=== PATIENT | female | born 1950 | race Caucasian/White ===

== ENCOUNTER → 2018-03-27 | Outpatient (CLI) | payer MEDICARE, BC ==
[2018-03-27 13:05] LABS: BASOPHILS ABSOLUTE AUTO 0.08 K/mm3 (0.00-0.23); BASOPHILS PERCENT AUTO 1 % (0-2); EOSINOPHILS ABSOLUTE AUTO 0.18 K/mm3 (0.00-0.68); EOSINOPHILS PERCENT AUTO 3 % (0-6); Hematocrit 38.9 % (33.0-51.0); Hemoglobin 13.3 g/dL (11.5-16.0); IMMATURE GRAN ABSOLUTE AUTO 0.02 K/mm3 (0.00-0.10); IMMATURE GRAN PERCENT AUTO 0 % (0-1); LYMPHOCYTES ABSOLUTE AUTO 0.74 K/mm3 (0.84-5.20); LYMPHOCYTES PERCENT AUTO 13 % (21-46); MONOCYTES ABSOLUTE AUTO 0.83 K/mm3 (0.16-1.47); MONOCYTES PERCENT AUTO 14 % (4-13); Mean Corpuscular HGB Conc 34.2 g/dL (31.5-36.5); Mean Corpuscular Volume 100 fL (80-100); Mean Platelet Volume 9.9 fL (9.1-12.4); NEUTROPHILS ABSOLUTE AUTO 3.98 K/mm3 (1.96-9.15); NEUTROPHILS PERCENT AUTO 68 % (41-73); Platelet Count 278 K/mm3 (150-400); RDW Coefficient Variation 12.9 % (11.7-14.2); Red Blood Cell Count 3.91 M/mm3 (3.80-5.20); White Blood Cell Count 5.83 K/mm3 (4.00-11.30)
[2018-03-27 13:17] LABS: Anion Gap 10 mmol/L (6-16); Blood Urea Nitrogen 13 mg/dL (8-24); Bun/Creatinine Ratio 18.3 (12.0-20.0); CO2, Blood 28 mmol/L (21-32); Calcium, Blood 9.6 mg/dL (8.5-10.1); Chloride, Blood 100 mmol/L (98-108); Creatinine, Blood 0.71 mg/dL (0.40-1.00); Glomerular Filtration Rate >60 (60-); Glucose, Blood 93 mg/dL (70-99); Potassium, Blood 4.8 mmol/L (3.5-5.5); Sodium, Blood 138 mmol/L (136-145)
[2018-03-27 13:35] LABS: Troponin I <0.017 ng/mL (0.000-0.040)
== END ==
LOC: LAB SHORT 13:00 → LAB EV 13:00
PROVIDERS: Physician Assistant Surgical
DX: R00.2 Palpitations (principal)
CPT/HCPCS: 80048; 84484; 85025

== ENCOUNTER 2019-05-28 09:13 | Day surgery (SDC) | payer MEDICARE, BC ==
[~2019-05-28] VITALS: Ht 167.6 cm; Wt 70.6 kg
[~2019-05-28 09:13] MED LIST: ASCO500 PO; ASPI325 PO; CALCIUM + D3 E1 EACH PO; CENTRUM SILVER1 EAC2 PO; CRANBERRY500 M1 PO; OMEG1CAP30 PO; TRAN2 PO
== END 2019-05-28 11:22 | disposition home or self-care (01) ==
LOC: ORSCSDS 09:13
PROVIDERS: Surgery
PROC: 0DBN8ZX Excision of Sigmoid Colon, Via Natural or Artificial Opening Endoscopic, Diagnostic (ICD-10-PCS; principal; 2019-05-28 10:30)
PROC: 0DBL8ZX Excision of Transverse Colon, Via Natural or Artificial Opening Endoscopic, Diagnostic (ICD-10-PCS; principal; 2019-05-28 10:30)
DX: Z12.11 Encounter for screening for malignant neoplasm of colon (principal); Z86.010 Personal history of colon polyps; D12.5 Benign neoplasm of sigmoid colon; D12.3 Benign neoplasm of transverse colon; K57.30 Diverticulosis of large intestine without perforation or abscess without bleeding; I10 Essential (primary) hypertension; E78.5 Hyperlipidemia, unspecified; Z79.82 Long term (current) use of aspirin; Z87.891 Personal history of nicotine dependence; Z79.899 Other long term (current) drug therapy
CPT/HCPCS: 88305; J2704; J7120

== ENCOUNTER 2019-10-01 08:16 | Day surgery (SDC) | payer MEDICARE, BC ==
[~2019-10-01] VITALS: Ht 160 cm; Wt 69.5 kg
[~2019-10-01 08:16] MED LIST changes: +ELIQUIS5 MG PO; +METO25ER PO
== END 2019-10-01 23:35 | disposition home or self-care (01) ==
LOC: MHTC 08:16
DX: I48.19 Other persistent atrial fibrillation (principal); I05.9 Rheumatic mitral valve disease, unspecified; I10 Essential (primary) hypertension; E78.5 Hyperlipidemia, unspecified; Z88.1 Allergy status to other antibiotic agents; Z88.2 Allergy status to sulfonamides; Z88.8 Allergy status to other drugs, medicaments and biological substances; Z79.01 Long term (current) use of anticoagulants; Z79.899 Other long term (current) drug therapy
CPT/HCPCS: 92960; 93005; 93010; 99152; 99153; J2250; J3010; J7030

== ENCOUNTER → 2020-08-17 | Outpatient (CLI) | payer MEDICARE, BC | END | disposition home or self-care (01) | LOC: LAB 14:47 → LAB SHORT 14:47 | DX: D48.5 Neoplasm of uncertain behavior of skin (principal); L73.8 Other specified follicular disorders | CPT/HCPCS: 88305 ==

== ENCOUNTER → 2021-02-07 | Outpatient (CLI) | payer MEDICARE, BC | LOC: LAB SHORT 16:13 → PLD 16:13 | DX: D48.5 Neoplasm of uncertain behavior of skin (principal); Z88.2 Allergy status to sulfonamides; Z88.8 Allergy status to other drugs, medicaments and biological substances | CPT/HCPCS: 88305 ==

== ENCOUNTER → 2021-09-11 | Outpatient (CLI) | payer MEDICARE, BC | LOC: LAB 10:57 → LAB SHORT 10:57 | DX: D48.5 Neoplasm of uncertain behavior of skin (principal); D23.39 Other benign neoplasm of skin of other parts of face; L57.8 Other skin changes due to chronic exposure to nonionizing radiation; L08.89 Other specified local infections of the skin and subcutaneous tissue; Z88.2 Allergy status to sulfonamides; Z88.8 Allergy status to other drugs, medicaments and biological substances | CPT/HCPCS: 88305 ==

== ENCOUNTER 2023-06-19 06:00 | Day surgery (SDC) | payer MEDICARE, BC ==
[~2023-06-19] VITALS: Ht 160 cm; Wt 73.0 kg
[~2023-06-19 06:00] MED LIST changes: +GABA300 PO
[2023-06-19 06:40] VITALS: BP 167/111
[2023-06-19 07:12] VITALS: BP 137/99
[2023-06-19 07:39] VITALS: BP 107/75
[2023-06-19 07:42] VITALS: BP 123/79
--- NOTE | 2023-06-19 08:10 | NUR ---
PT AND VERBALIZED UNDERSTANDING OF WRITTEN AND VERBAL D/C INST. IV REMOVED. PT TAKEN OUT OF THE HRT CENTER VIA W/C.
== END 2023-06-19 08:00 | disposition home or self-care (01) ==
LOC: MHTC 06:00
DX: I34.0 Nonrheumatic mitral (valve) insufficiency (principal); I34.1 Nonrheumatic mitral (valve) prolapse; I48.0 Paroxysmal atrial fibrillation; I10 Essential (primary) hypertension; R73.03 Prediabetes; R79.89 Other specified abnormal findings of blood chemistry; G25.81 Restless legs syndrome; E78.5 Hyperlipidemia, unspecified; G47.33 Obstructive sleep apnea (adult) (pediatric); G89.29 Other chronic pain; M54.9 Dorsalgia, unspecified; E66.3 Overweight; F10.10 Alcohol abuse, uncomplicated; Z88.2 Allergy status to sulfonamides; Z87.891 Personal history of nicotine dependence
CPT/HCPCS: 93312; 93325; A9270; J2001; J2704; J7030

== ENCOUNTER 2024-01-21 11:00 | Inpatient (IN) | payer MEDICARE, BC ==
[~2024-01-21] VITALS: Ht 157.5 cm; Wt 71.5 kg
[2024-01-21 13:09] LABS: BASOPHILS ABSOLUTE AUTO 0.05 K/mm3 (0.00-0.23); BASOPHILS PERCENT AUTO 0 % (0-2); EOSINOPHILS PERCENT AUTO 0 % (0-6); Hematocrit 37.7 % (33.0-51.0); Hemoglobin 12.8 g/dL (11.5-16.0); IMMATURE GRAN ABSOLUTE AUTO 0.06 K/mm3 (0.00-0.10); IMMATURE GRAN PERCENT AUTO 0 % (0-1); LYMPHOCYTES ABSOLUTE AUTO 0.64 K/mm3 (0.84-5.20); LYMPHOCYTES PERCENT AUTO 5 % (21-46); MONOCYTES ABSOLUTE AUTO 1.29 K/mm3 (0.16-1.47); MONOCYTES PERCENT AUTO 10 % (4-13); Mean Corpuscular Volume 91 fL (80-100); Mean Platelet Volume 9.4 fL (9.1-12.4); NEUTROPHILS ABSOLUTE AUTO 11.58 K/mm3 (1.96-9.15); NEUTROPHILS PERCENT AUTO 85 % (41-73); Platelet Count 422 K/mm3 (150-400); RDW Coefficient Variation 12.7 % (11.7-14.2); RDW Standard Deviation 42.4 fL (35.1-46.3); Red Blood Cell Count 4.13 M/mm3 (3.80-5.20); White Blood Cell Count 13.62 K/mm3 (4.00-11.30)
[2024-01-21] MEDS ORDERED: Doxycycline Hyclate 100 MG TAB PO ONE (14:50)
[2024-01-21] MEDS ORDERED: NS 1,000 ML IV SCH (14:50)
[2024-01-21] MEDS ORDERED: CefTRIAXone Sodium 1,000 MG in NS 50 ML IV ONE ×2 (14:50→16:15)
[2024-01-21 14:59] LABS: Albumin, Blood 2.9 g/dL (3.4-5.0); Albumin/Globulin Ratio 0.7 (0.8-1.8); Bilirubin, Total 1.5 mg/dL (0.1-1.0); Bun/Creatinine Ratio 19.4 (12.0-20.0); Calcium, Blood 9.4 mg/dL (8.5-10.1); Creatinine, Blood 0.62 mg/dL (0.40-1.00); Globulin, Blood 4.4 g/dL (2.2-4.0); Total Protein, Blood 7.3 g/dL (6.4-8.2)
[2024-01-21] MEDS ORDERED: dilTIAZem HCL 125 MG in Dextrose 5% 100 ML IV SCH (15:35)
[2024-01-21] MEDS ORDERED: Acetaminophen 325 MG TABLET PO PRN (16:05)
[2024-01-21] MEDS ORDERED: FLU VACC QS2023-24(6MOS UP)/PF 60 MCG/0.5 ML SYRINGE IM SCH (16:05)
[2024-01-21] MEDS ORDERED: Prochlorperazine Edisylate 10 mg Vial IV PRN (16:10)
[2024-01-21] MEDS ORDERED: Azithromycin 500 MG in NS 250 ML IV ONE (16:15)
[2024-01-21] MEDS ORDERED: LORazepam 2 MG/ML 1ML Injection IV PRN (16:25)
[2024-01-21] MEDS ORDERED: FURO20 PO (18:36)
--- NOTE | 2024-01-21 19:31 | NUR ---
PT ARRIVED TO [facility] FROM ER VIA [facility]. PT ABLE TO STAND AND AMBULATE FROM [facility] TO BED WITH HER CANE AND SBA FROM STAFF. PT A&OX4, ORIENTED TO ROOM, CALL LIGHT AND UNIT ROUTINES. HR 150s W EXERTION, AFIB ON TELE. CARDIZEM GTT FROM ER INCREASED TO 15. INITAL BPs DID NOT APPEAR TO BE READING ACCURATELY, WRIST CUFF PLACED AND BPs WERE IMPROVED. REPORT GIVEN TO AYSHA BILLINGS.
[2024-01-21 19:51] VITALS: BP 128/76
[2024-01-21] MEDS ORDERED: Apixaban 5 MG Tab PO SCH (21:00)
[2024-01-21] MEDS ORDERED: Gabapentin 300 MG Cap PO SCH (21:00)
[2024-01-21 23:45] VITALS: BP 110/60
[2024-01-22] VITALS (8 sets, daily range): BP systolic 109–150; BP diastolic 55–92
[2024-01-22 05:06] LABS: BASOPHILS ABSOLUTE AUTO 0.04 K/mm3 (0.00-0.23); BASOPHILS PERCENT AUTO 0 % (0-2); EOSINOPHILS ABSOLUTE AUTO 0.01 K/mm3 (0.00-0.68); EOSINOPHILS PERCENT AUTO 0 % (0-6); Hematocrit 37.8 % (33.0-51.0); Hemoglobin 12.8 g/dL (11.5-16.0); IMMATURE GRAN ABSOLUTE AUTO 0.09 K/mm3 (0.00-0.10); IMMATURE GRAN PERCENT AUTO 1 % (0-1); LYMPHOCYTES ABSOLUTE AUTO 0.67 K/mm3 (0.84-5.20); LYMPHOCYTES PERCENT AUTO 4 % (21-46); MONOCYTES ABSOLUTE AUTO 1.58 K/mm3 (0.16-1.47); MONOCYTES PERCENT AUTO 10 % (4-13); Mean Corpuscular HGB 30.7 pg (26.0-34.0); Mean Corpuscular HGB Conc 33.9 g/dL (31.5-36.5); Mean Corpuscular Volume 91 fL (80-100); Mean Platelet Volume 9.3 fL (9.1-12.4); NEUTROPHILS ABSOLUTE AUTO 14.11 K/mm3 (1.96-9.15); NEUTROPHILS PERCENT AUTO 86 % (41-73); Platelet Count 370 K/mm3 (150-400); RDW Coefficient Variation 12.9 % (11.7-14.2); RDW Standard Deviation 42.6 fL (35.1-46.3); Red Blood Cell Count 4.17 M/mm3 (3.80-5.20)
--- NOTE | 2024-01-22 05:24 | NUR ---
SHIFT SUMMARY A/Ox4 AND COOPERATIVE WITH CARE. ANSWERS QUESTIONS APPROPRIATELY AND ABLE TO MAKE HER NEEDS KNOWN. SOME FORGETFULNESS NOTED, BUT EASILY REDIRECTABLE. NO ACUTE EVENTS OVERNIGHT. CARDIAC, REMAINS IN AFIB RHYTHM 90-110'S THROUGHOUT MOST OF THE NIGHT. CARDIZEM gtt TITRATED OFF AND ON THROUGHOUT THE NIGHT FOR HEART RATE CONTROL. SHIFT. HR WOULD INCREASE INTO THE 130's-140'S WITH AMBULATION, BUT WOULD RETURN TO 90-110 S AT REST. SBP HAS REMAINED STABLE RANGING 110-150'S. RESPIRATORY, MAINTAINS SPO2 >90% ON RA WITH NO REPORTS OF SOB OR DYSPNEA WHEN AT REST. GI/, ABLE TO AMBULATE TO BATHROOM WITH MINIMAL ASSISTANCE FROM STAFF. ECHO SCHEDULED THIS AM. NO NEW ORDERS AT THIS TIME, WILL REPORT TO ONCOMING RN. MARILU HERNANDEZ OF THIS NOTE.
[2024-01-22 06:26] LABS: Bun/Creatinine Ratio 19.4 (12.0-20.0); Calcium, Blood 9.4 mg/dL (8.5-10.1); Creatinine, Blood 0.57 mg/dL (0.40-1.00); Magnesium, Blood 1.7 mg/dL (1.6-2.4); Potassium, Blood 3.6 mmol/L (3.5-5.5)
--- NOTE | 2024-01-22 08:21 | NUR ---
Very pleasantly conversant cheerful patient this morning. arrived shortly after my initial assessment. She states that she is coughing occasionally, but no sputum production. The cough started 2 weeks ago. Lung sounds are clear to auscultation, but she is tachypneic at rest, 24/min. Heart rhythm noted atrial fibrillation rate 102-106 bpm, on cardizem gtt at 15 cc/hour. Noc shift reported that the cardizem gtt was off for about 5 hours last night when rate was well controllled; but after she got up to void it had to be turned back on, around 5 am. Pt states that she normally takes 12.5 mg metoprolol, but that it had been increased to 50 mg for better rate control as out patient. States that this made her feel extremely tired and weak. Last dose of metoprolol that she took she said was yesterday morning, 25 mg. Echocardiogram currently in progress.
[2024-01-22] MEDS ORDERED: Metoprolol Succinate 25 MG TABCR PO SCH ×3 (09:00→11:00)
[2024-01-22] MEDS ORDERED: Metoprolol Tartrate 25 MG Tab PO SCH ×2 (11:10→21:00)
[2024-01-22] MEDS ORDERED: Potassium Chloride 20 MEQ TabCR PO SCH (12:00)
--- NOTE | 2024-01-22 13:11 | NUR ---
Spiritual care visit conducted. Patient is lying in bed and alert. She tells me about her L[employer] Day beliefs, her life growing up in [place], her marriage of 6 yrs and her medical problems. She tells me of her need for God at this time and is tearful as she speaks about it. I provide therapeutic listening, theological insights and prayer. Patient responded well and showed signs of an increase in her spiritual connection with God. I will cotninue to remain available.
--- NOTE | 2024-01-22 13:53 | NUR ---
Pt c/o feeling feverish; Temperature 101.5, then 102.0. Message sent to Dr. Hedrick, attending .
--- NOTE | 2024-01-22 14:00 | NUR ---
Ambulatory to the bathroom; heart rate 105 bpm on cardizem gtt at 10cc/hour. No dyspnea noted with activity, but she is tachypneic at rest.
[2024-01-22] MEDS ORDERED: NS 250 ML IV PRN (16:15)
[2024-01-22] MEDS ORDERED: CefTRIAXone Sodium 2,000 MG in NS 100 ML IV SCH (18:00)
[2024-01-22] MEDS ORDERED: Azithromycin 250 MG in NS 250 ML IV SCH (18:00)
[2024-01-22] MEDS ORDERED: Lactobacil 2-S.Thermo-Bifido 1 1 Cap PO SCH (21:00)
[2024-01-22] MEDS ORDERED: Gabapentin 300 MG Cap PO SCH (21:00)
[2024-01-23] VITALS (7 sets, daily range): BP systolic 109–149; BP diastolic 62–90
[2024-01-23 04:20] LABS: BASOPHILS ABSOLUTE AUTO 0.07 K/mm3 (0.00-0.23); BASOPHILS PERCENT AUTO 0 % (0-2); EOSINOPHILS ABSOLUTE AUTO 0.11 K/mm3 (0.00-0.68); EOSINOPHILS PERCENT AUTO 1 % (0-6); Hematocrit 34.4 % (33.0-51.0); Hemoglobin 11.5 g/dL (11.5-16.0); IMMATURE GRAN ABSOLUTE AUTO 0.08 K/mm3 (0.00-0.10); IMMATURE GRAN PERCENT AUTO 0 % (0-1); LYMPHOCYTES ABSOLUTE AUTO 0.88 K/mm3 (0.84-5.20); LYMPHOCYTES PERCENT AUTO 5 % (21-46); MONOCYTES ABSOLUTE AUTO 2.16 K/mm3 (0.16-1.47); MONOCYTES PERCENT AUTO 12 % (4-13); Mean Corpuscular HGB 30.5 pg (26.0-34.0); Mean Corpuscular HGB Conc 33.4 g/dL (31.5-36.5); Mean Corpuscular Volume 91 fL (80-100); Mean Platelet Volume 9.4 fL (9.1-12.4); NEUTROPHILS ABSOLUTE AUTO 14.95 K/mm3 (1.96-9.15); NEUTROPHILS PERCENT AUTO 82 % (41-73); Platelet Count 357 K/mm3 (150-400); RDW Coefficient Variation 13.2 % (11.7-14.2); RDW Standard Deviation 43.2 fL (35.1-46.3); Red Blood Cell Count 3.77 M/mm3 (3.80-5.20); White Blood Cell Count 18.25 K/mm3 (4.00-11.30)
[2024-01-23 04:48] LABS: Bun/Creatinine Ratio 21.1 (12.0-20.0); Calcium, Blood 9.7 mg/dL (8.5-10.1); Creatinine, Blood 0.62 mg/dL (0.40-1.00); Potassium, Blood 4.1 mmol/L (3.5-5.5)
--- NOTE | 2024-01-23 06:09 | NUR ---
SHIFT SUMMARY PT ALERT AND ORIENTED X 4, COOPERATIVE WITH CARE AND ABLE TO MAKE NEEDS KNOWN, CALLS APPROPRIATELY. LEXIE. SHE IS ON RA AND MAINTAINING 02 SATURATION ABOVE 92%, SHE HAS DENIED SOB ALL SHIFT. HR AFIB 80'S-LOW 100'S, BP STABLE, SHE HAS DENIED CHEST PAIN/PRESSURE/PALPITATIONS/DIZZINESS ALL SHIFT. CARDIZEM DRIP RUNNING AT 5MG/HR AND HAS BEEN ALL SHIFT. PT AMBULATES TO RESTROOM WITH SBA AND TOLERATES WELL. EDEMA TO BLE, PT SAID IT IS CHRONIC. AROUND 2100 PT'S TEMP WAS ELEVATED, PT WAS MEDICATED PER EMAR AND NO LONGER HAS ELEVATED TEMP, SEE VITALS. PT HAS BEEN SLEEPING THE MAJORITY OF THE SHIFT WITH UNLABORED BREATHING PATTERN AND RR 16. PT CURRENTLY RESTING IN BED WITH CALL LIGHT WITHIN REACH.
--- NOTE | 2024-01-23 08:05 | NUR ---
AM ASSESSMENT: Pt sitting up in chair finishing breakfast. Denies pain. Tele shows HR 120, afib at this time. Cardizem gtt running at 5mg/hr. Will medicate with oral metoprolol per orders and monitor. VSS. LS diminished in R upper lobe. BT positive. Pulses palp. Edema to BLE noted. Pulses palp. Call light in reach. Will continue to monitor.
--- NOTE | 2024-01-23 10:37 | NUR ---
update: HR in the 80's. Cardizem gtt turned off.
--- NOTE | 2024-01-23 14:28 | NUR ---
Spiritaul care teet conducted. Patient talks about her joey journey, and her greatest concern for her spouse. He is doing well but wants her home. She shares her excitement about her marked improvement. She welcomes prayer which I gladly supply. Patient showed signs of an elevated mood. I will continue to remain available to patient and family.
[2024-01-23] MEDS ORDERED: Metoprolol Tartrate 25 MG Tab PO ONE (15:55)
--- NOTE | 2024-01-23 17:37 | NUR ---
Shift Summary: Pt sitting up in chair eating dinner, at bedside. Pt has done well this shift. States that she is feeling better. Cardizem gtt was turned off this am and pt HR was doing well, rate in the 80's, until around [id number]. At that time HR started to trend up into the 120-130 range. Physician was notified and orders for oral metoprolol were given. HR now starting to trend back down and is in the low 100 range. PT other VS have remained stable. She has been up and independent in room throughout the day. HR does increase slightly with activity. No other changes this shift. Will report to night RN. Stable at this time.
--- NOTE | 2024-01-23 20:18 | NUR ---
[place] of care Pt alert, oriented x4; calm and cooperative with care. Pt up in chair, walks ind to bathroom and then gets in bed for the evening. Pt is able to make needs known. Pt denies pain, chest pain/pressure, sob, nausea, dizziness and numb/tingling. Tele afib 100-110's at rest, 120-130 with ambulation, bp stable; edema noted to ble. Spo2 >90% on ra, breathing even and unlabored; dim to rul. Abd soft, nontender, +bt t/o. No other acute changes noted. Will continue to monitor.
[2024-01-23] MEDS ORDERED: Metoprolol Tartrate 50 MG Tab PO SCH (21:00)
[2024-01-24 03:56] VITALS: BP 135/85
[2024-01-24 04:12] LABS: BASOPHILS ABSOLUTE AUTO 0.06 K/mm3 (0.00-0.23); BASOPHILS PERCENT AUTO 1 % (0-2); EOSINOPHILS ABSOLUTE AUTO 0.17 K/mm3 (0.00-0.68); EOSINOPHILS PERCENT AUTO 2 % (0-6); Hematocrit 32.9 % (33.0-51.0); Hemoglobin 11.2 g/dL (11.5-16.0); IMMATURE GRAN ABSOLUTE AUTO 0.05 K/mm3 (0.00-0.10); IMMATURE GRAN PERCENT AUTO 1 % (0-1); LYMPHOCYTES ABSOLUTE AUTO 0.85 K/mm3 (0.84-5.20); LYMPHOCYTES PERCENT AUTO 8 % (21-46); MONOCYTES ABSOLUTE AUTO 1.54 K/mm3 (0.16-1.47); MONOCYTES PERCENT AUTO 14 % (4-13); Mean Corpuscular HGB 30.7 pg (26.0-34.0); Mean Corpuscular Volume 90 fL (80-100); Mean Platelet Volume 9.7 fL (9.1-12.4); NEUTROPHILS ABSOLUTE AUTO 8.17 K/mm3 (1.96-9.15); NEUTROPHILS PERCENT AUTO 75 % (41-73); Platelet Count 370 K/mm3 (150-400); RDW Coefficient Variation 13.1 % (11.7-14.2); RDW Standard Deviation 43.4 fL (35.1-46.3); Red Blood Cell Count 3.65 M/mm3 (3.80-5.20); White Blood Cell Count 10.84 K/mm3 (4.00-11.30)
--- NOTE | 2024-01-24 04:34 | NUR ---
Shift Summary tele afib trended down to 90 for majority of shift, then started trending up to 110-110's at rest, 120-130 with ambulation. Other vss. No other acute changes noted. Will continue to monitor.
[2024-01-24 04:35] LABS: Bun/Creatinine Ratio 20.2 (12.0-20.0); Calcium, Blood 9.2 mg/dL (8.5-10.1); Creatinine, Blood 0.6 mg/dL (0.40-1.00); Potassium, Blood 3.9 mmol/L (3.5-5.5)
[2024-01-24 07:30] VITALS: BP 141/81
[2024-01-24] MEDS ORDERED: Furosemide 20 MG Tab PO SCH (09:25)
[2024-01-24 11:06] VITALS: BP 145/90
[2024-01-24] MEDS ORDERED: Benzonatate 100 MG Cap PO SCH (14:00)
[2024-01-24 16:33] VITALS: BP 141/84
--- NOTE | 2024-01-24 17:33 | NUR ---
SHIFT SUMMARY PT IS A&oX4, CALLS APPROPRAITELY, IND IN THE ROOM, AND CAN MAKE HER NEEDS KNOWN. THE PT'S HR HAS BEEN TACHY W/ ACTIVITY. ON TELE SHE IS AFIB. SP02 >95% ON RA. WE SWITCHED HER METOPROLOL THIS EVENING TO EXTENDED RELEASE. ALSO, THE PT WAS C/O EDEMA IN THE BLE; DR. MARTINEZ RESTARTED HER HOME LASIX. THE PT WORKED WITH PT/OT TODAY AND WAS UP IN THE CHAIR MOST OF THE EVENING. NO ACUTE EVENTS THIS SHIFT. SEE NOTES FOR ANY UPDATES.
[2024-01-24 20:06] VITALS: BP 138/111
[2024-01-24] MEDS ORDERED: Metoprolol Succinate 50 MG TABCR PO SCH (21:00)
[2024-01-25 00:30] VITALS: BP 149/91
[2024-01-25 04:54] VITALS: BP 129/74
--- NOTE | 2024-01-25 04:59 | NUR ---
SHIFT SUMMARY. PT HAS BEEN DOING WELL THIS SHIFT WITH NO ACUTE CHANGES. AOX4, PLEASANT, COOPERATIVE WITH CARE, CALLS APPROPRIATELY, ABLE TO MAKE NEEDS KNOWN. NO PAIN REPORTED THIS SHIFT. TELE ON THROUGHOUT SHIFT, PRIMARILY RUNNING IN THE 100s-110s WITH TACHYING UP WITH ANY ACTIVITY. VITALS INCLUDING BP STABLE. HAS MAINTAINED ADEQUATE SATURATIONS ON ROOM AIR THROUGHOUT SHIFT. REMAINS INDEPENDENT TRANSFER WITHIN ROOM AND CALLS APPROPRIATELY FOR ASSISTANCE WHEN NEEDED. HAS BEEN ABLE TO SLEEP THROUGH MOST OF SHIFT. BED LOCKED IN LOWEST POSITION. CALL LIGHT LEFT WITHIN REACH.
[2024-01-25 07:50] VITALS: BP 126/92
[2024-01-25] MEDS ORDERED: Amiodarone HCl 200 MG Tab PO SCH (10:00)
[2024-01-25] MEDS ORDERED: Bumetanide 1 MG Tab PO SCH (12:00)
[2024-01-25] MEDS ORDERED: Piperacillin/Tazobactam Sod 4.5 GM in NS 100 ML IV SCH (13:30)
[2024-01-25 15:31] VITALS: BP 130/80
--- NOTE | 2024-01-25 17:31 | NUR ---
SHIFT SUMMARY PT IS A&oX4, CALLS APPROPRAITLY, IND IN THE ROOM, AND IS ABLE TO MAKE HER NEEDS KNOWN. TODAY WE CHANGED HER CARDIAC MEDICATIONS TO 400MG AMIO BID, AND METOPROLOL 50MG XL DAILY. DR. MARTINEZ WANTS TO SEE HOW HER HEART RATE IS DOING IN THE MORNING BEFORE GIVING THE METOPROLOL BECAUSE SHE MIGHT WANT TO MAKE MORE MEDICATION CHANGES. BP STABLE. THE PT HAD A REPEAT CHEST XRAY AND IT SHOWED A WORSENING CHEST XRAY FOR PNA. SHE WAS STARTED ON ZOSYN TODAY. TH EPT WAS HAVING SOME RIGHT SHOULDER PAIN TODAY. SHE STATED SHE HAS BEEN HAVING IT FOR MONTHS AND IT IS WORSENED WITH MOVEMENT. SHE WAS MEDICATED ONCE WITH TYLENOL AND ENCOURAGED ROM. WHEN PAIN WAS REEVALUATED HER PAIN WENT DOWN AND THE PT HAD INCREASED ROM IN HER RIGHT ARM. THE PT'S SP02 >93% ON RA W/O ANY C.O SOB. ON TELE SHE HAS BEEN AFIB 90'S-160'S W/O ANY C/O ANGINA OR CHEST PRESSURE. THE PT HAD A CHEST CT W/ CONTRAST DONE THIS AFTERNOON. DR. MARTINEZ WILL BE BACK IN THE MORNING TO TALK TO THE PT ABOUT IT. THE PT WAS IN THE BATHROOM WHEN SHE CAME BACK TO DISCUSS IT.
[2024-01-25 20:05] VITALS: BP 135/71
[2024-01-26 00:41] VITALS: BP 136/85
[2024-01-26 03:44] LABS: BASOPHILS ABSOLUTE AUTO 0.07 K/mm3 (0.00-0.23); BASOPHILS PERCENT AUTO 1 % (0-2); EOSINOPHILS ABSOLUTE AUTO 0.26 K/mm3 (0.00-0.68); EOSINOPHILS PERCENT AUTO 3 % (0-6); Hematocrit 30.4 % (33.0-51.0); Hemoglobin 10.3 g/dL (11.5-16.0); IMMATURE GRAN ABSOLUTE AUTO 0.04 K/mm3 (0.00-0.10); IMMATURE GRAN PERCENT AUTO 1 % (0-1); LYMPHOCYTES ABSOLUTE AUTO 0.54 K/mm3 (0.84-5.20); LYMPHOCYTES PERCENT AUTO 7 % (21-46); MONOCYTES ABSOLUTE AUTO 1.11 K/mm3 (0.16-1.47); MONOCYTES PERCENT AUTO 14 % (4-13); Mean Corpuscular HGB 30.6 pg (26.0-34.0); Mean Corpuscular HGB Conc 33.9 g/dL (31.5-36.5); Mean Corpuscular Volume 90 fL (80-100); Mean Platelet Volume 9.6 fL (9.1-12.4); NEUTROPHILS PERCENT AUTO 75 % (41-73); Platelet Count 375 K/mm3 (150-400); RDW Coefficient Variation 13.1 % (11.7-14.2); RDW Standard Deviation 43.2 fL (35.1-46.3); Red Blood Cell Count 3.37 M/mm3 (3.80-5.20); White Blood Cell Count 7.92 K/mm3 (4.00-11.30)
[2024-01-26 04:09] LABS: Albumin, Blood 2.3 g/dL (3.4-5.0); Albumin/Globulin Ratio 0.6 (0.8-1.8); Bilirubin, Total 0.7 mg/dL (0.1-1.0); Bun/Creatinine Ratio 28.4 (12.0-20.0); Calcium, Blood 8.9 mg/dL (8.5-10.1); Creatinine, Blood 0.63 mg/dL (0.40-1.00); Globulin, Blood 3.7 g/dL (2.2-4.0); Magnesium, Blood 1.7 mg/dL (1.6-2.4); Potassium, Blood 3.6 mmol/L (3.5-5.5)
[2024-01-26 04:22] VITALS: BP 134/74
--- NOTE | 2024-01-26 04:27 | NUR ---
SHIFT SUMMARY. PT HAS BEEN DOING WELL OVER COURSE OF SHIFT. AOX4, PLEASANT, COOPERATIVE WITH CARE, CALLS APPROPRIATELY, ABLE TO MAKE NEEDS KNOWN. NO ACUTE CHANGES THIS SHIFT. TELE ON THROUGHOUT SHIFT. HAS MAINTAINED AFIB WITH LOWER CONSISTENT RATE THAN PREVIOUS SHIFT WITH THIS RN. HR MOSTLY SETTLING IN 90s-100s WITH OCCASIONAL TACHY EPISODES WITH AMBULATION, ALTHOUGH INSTANCES OF TACHY ARE LESS PRONOUNCED THAN PREVIOUS SHIFT WITH THIS RN. PT HAS BEEN ABLE TO SLEEP THROUGHOUT MOST OF THIS SHIFT THUS FAR. CONTINUES TO SATURATE WELL ON ROOM AIR. REMAINS INDEPENDENT WITHIN ROOM. ABX ADMINISTERED ON SCHEDULE WITHOUT DIFFICULTY. BED LOCKED IN LOWEST POSITION. CALL LIGHT LEFT WITHIN REACH. CONTINUING TO MONITOR.
[2024-01-26 07:48] VITALS: BP 136/74
[2024-01-26] MEDS ORDERED: Mag Sulfate 1 GM/D5% 100ML 100 ML IV STA (08:15)
[2024-01-26] MEDS ORDERED: Metoprolol Succinate 50 MG TABCR PO SCH (09:00)
[2024-01-26] MEDS ORDERED: Potassium Chloride 20 MEQ TabCR PO ONE (09:00)
[2024-01-26] MEDS ORDERED: Metoprolol Succinate 25 MG TABCR PO SCH (09:00)
[2024-01-26 11:05] VITALS: BP 135/98
[2024-01-26 15:42] VITALS: BP 138/90
--- NOTE | 2024-01-26 16:59 | NUR ---
SHIFT SUMMARY PT IS A&OX4, CALLS APPROPRIATELY, AND IS IND IN THE ROOM. SHE HAS HAD NO ACUTE EVENTS TODAY. ON TELE SHE HAS BEEN AFIB 90 S-140 S. HER HR TACH S UP W/ ACTIVITY. HER METOPROLOL XL WAS DECREASED TO 25MG THIS MORNING. THE PT HAS DENIED ANY ANGINA OR CHEST PRESSURE. SHE HAS BEEN ON RA W/ SP02 >93%. THE PT HAS BEEN TRYING TO KEEP HER ROM, AND HAS BEEN AMBULATING AROUND THE UNIT TODAY. HER HAS BEEN AT THE BEDSIDE AND HAS BEEN UPDATED ON HER CARE. SEE NOTES FOR ANY UPDATES. FIRE IGNITION RISK HAS BEEN ASSESSED.
[2024-01-26 20:00] VITALS: BP 144/83
--- NOTE | 2024-01-26 22:41 | NUR ---
ASSUMPTION OF CARE THIS RN ASSUMED CARE OF PT AT 1900, REPORT FROM MANUELITO REYES. PT A&O X4, PLEASANT AND COOPERATIVE WITH CARE. PT SITTING UP IN BEDSIDE RECLINER, ANSWERING QUESTIONS APPROPRIATELY. VS; SBP 144, HR 122, 98.5, SPO2 96% ON RA. PT DENIES CP/PRESSURE, DIZZINESS, SOB, PALPITATIONS, N/V. PT DENIES GENERAL PAIN AT THIS TIME, REPORTS HER RIGHT SHOULDER DOES "BOTHER HER AT TIMES". PT DENIES CONCERNS GI/. SKIN INTACT. PT INDEPENDENT IN ROOM, USES RESTROOM AND REPOSITIONS INDEPENDENTLY. PT DENIES NEEDS OR CONCERNS. CALL LIGHT IN REACH
[2024-01-27] VITALS: BP 141/82
[2024-01-27 04:00] VITALS: BP 140/79
[2024-01-27 05:02] LABS: BASOPHILS ABSOLUTE AUTO 0.09 K/mm3 (0.00-0.23); BASOPHILS PERCENT AUTO 1 % (0-2); EOSINOPHILS ABSOLUTE AUTO 0.29 K/mm3 (0.00-0.68); EOSINOPHILS PERCENT AUTO 3 % (0-6); Hematocrit 31.7 % (33.0-51.0); Hemoglobin 10.7 g/dL (11.5-16.0); IMMATURE GRAN ABSOLUTE AUTO 0.07 K/mm3 (0.00-0.10); IMMATURE GRAN PERCENT AUTO 1 % (0-1); LYMPHOCYTES ABSOLUTE AUTO 0.68 K/mm3 (0.84-5.20); LYMPHOCYTES PERCENT AUTO 6 % (21-46); MONOCYTES PERCENT AUTO 15 % (4-13); Mean Corpuscular HGB 30.6 pg (26.0-34.0); Mean Corpuscular HGB Conc 33.8 g/dL (31.5-36.5); Mean Corpuscular Volume 91 fL (80-100); Mean Platelet Volume 9.4 fL (9.1-12.4); NEUTROPHILS ABSOLUTE AUTO 8.17 K/mm3 (1.96-9.15); NEUTROPHILS PERCENT AUTO 75 % (41-73); Platelet Count 415 K/mm3 (150-400); RDW Coefficient Variation 12.9 % (11.7-14.2); RDW Standard Deviation 42.4 fL (35.1-46.3)
[2024-01-27 05:35] LABS: Bun/Creatinine Ratio 26.1 (12.0-20.0); Calcium, Blood 9.2 mg/dL (8.5-10.1); Creatinine, Blood 0.69 mg/dL (0.40-1.00); Potassium, Blood 3.8 mmol/L (3.5-5.5)
--- NOTE | 2024-01-27 07:30 | NUR ---
SHIFT SUMMARY PT REMAINS A&O X4, VSS T/O SHIFT; SBP 140'S, REMAINS IN AFIB WITH RATE IN 90'S - 110'S. PT'S HR CONTINUES TO INCREASE INTO 120 - 150'S WITH ACTIVITY. PT DENIES SX AND IS ABLE TO RECOVER ONCE AT REST. REMAINS ON RA, SPO2 >95%, WOB AND RR WNL. PT REPORTS COUGH IMPROVING. AFEBRILE. NO ACUTE CHANGES DURING SHIFT. PT INDEPENDENT IN ROOM, VOIDING WELL. PT REPORTS ONE SMALL, FORMED BUT SOFT BM - NO CONCERNS OR CHANGES. ABX PER EMAR. PT ABLE TO VERBALIZE NEEDS. WILL UPDATE ONCOMING RN
[2024-01-27] MEDS ORDERED: Lisinopril 10 MG Tab PO SCH (08:00)
[2024-01-27 08:01] VITALS: BP 132/80
[2024-01-27] MEDS ORDERED: Metoprolol Succinate 25 MG TABCR PO SCH (11:00)
[2024-01-27] MEDS ORDERED: Potassium Chloride 20 MEQ TabCR PO ONE (12:00)
[2024-01-27 12:56] VITALS: BP 120/77
[2024-01-27 16:55] VITALS: BP 133/78
--- NOTE | 2024-01-27 17:48 | NUR ---
PT IS A/OX4,PLEASANT AND COOPERATIVE. THE PT IS UP IND IN HER ROOM AND TO THE BATHROOM. THE PTS HEART HAS BEEN IN THE 110'S - 120'S FOR MOST OF THE DAY AT REST. THE PTS HR INCREASES UP TO THE 130-140 RANGE WITH MINIMAL ACTIVITY. THE PT DENIED ANY CHEST PAIN,N/V OR SOB. PTS WAS AT THE BEDSIDE T/O THE DAY. CALL LIGHT IN REACH. POSS DC TOMORROW
[2024-01-27 20:00] VITALS: BP 125/82
[2024-01-28] VITALS: BP 129/62
[2024-01-28 04:00] VITALS: BP 110/67
[2024-01-28 04:40] LABS: BASOPHILS ABSOLUTE AUTO 0.08 K/mm3 (0.00-0.23); BASOPHILS PERCENT AUTO 1 % (0-2); EOSINOPHILS ABSOLUTE AUTO 0.33 K/mm3 (0.00-0.68); EOSINOPHILS PERCENT AUTO 3 % (0-6); Hematocrit 31.1 % (33.0-51.0); Hemoglobin 10.3 g/dL (11.5-16.0); IMMATURE GRAN ABSOLUTE AUTO 0.06 K/mm3 (0.00-0.10); IMMATURE GRAN PERCENT AUTO 1 % (0-1); LYMPHOCYTES ABSOLUTE AUTO 0.63 K/mm3 (0.84-5.20); LYMPHOCYTES PERCENT AUTO 6 % (21-46); MONOCYTES ABSOLUTE AUTO 1.49 K/mm3 (0.16-1.47); MONOCYTES PERCENT AUTO 14 % (4-13); Mean Corpuscular HGB 29.9 pg (26.0-34.0); Mean Corpuscular HGB Conc 33.1 g/dL (31.5-36.5); Mean Corpuscular Volume 90 fL (80-100); Mean Platelet Volume 9.4 fL (9.1-12.4); NEUTROPHILS ABSOLUTE AUTO 8.01 K/mm3 (1.96-9.15); NEUTROPHILS PERCENT AUTO 76 % (41-73); Platelet Count 421 K/mm3 (150-400); RDW Coefficient Variation 13.1 % (11.7-14.2); RDW Standard Deviation 43.2 fL (35.1-46.3); Red Blood Cell Count 3.44 M/mm3 (3.80-5.20)
[2024-01-28 05:05] LABS: Bun/Creatinine Ratio 21.1 (12.0-20.0); Calcium, Blood 9.1 mg/dL (8.5-10.1); Creatinine, Blood 0.76 mg/dL (0.40-1.00)
--- NOTE | 2024-01-28 06:25 | NUR ---
SHIFT SUMMARY PT REMAINS A&O X4. VS; SBP 120'S, AFIB WITH RATE IN 90 - 120'S AT REST, HR CONTINUES TO INCREASE TO 130 -140'S WITH ACTIVITY. PT REMAINS ASYMPTOMATIC. AFEBRILE, RA SPO2 >94%. NO ACUTE EVENTS OVERNIGHT. PT INDEPENDENT IN ROOM. PT READY TO "GO HOME". PT DOES REPORT AN INCREASE IN BM YESTERDAY DURING DAY SHIFT - REPORTS HAD "SEVERAL SMALL, LOOSE STOOLS". STATES NORMAL IN COLOR, BUT "SOFT/LOOSE". PT REPORTS ONLY ONE SMALL, SOFT BM DURING NOC SHIFT. PT CURRENTLY RESTING. ABX PER JAN. CALL LIGHT IN REACH, ABLE TO APPROPRIATELY VERBALIZE NEEDS. WILL UPDATE ONCOMING RN
--- NOTE | 2024-01-28 07:41 | NUR ---
ASSUMED CARE: PT RESTING QUIETLY IN BED AT THIS TIME. AFIB ON TELE IN THE 90S. NO ACUTE NEEDS OR CONCERNS AT THIS TIME.
[2024-01-28 08:09] VITALS: BP 130/85
[2024-01-28] MEDS ORDERED: AMIODARONE HCL400 M2 PO (11:25)
[2024-01-28] MEDS ORDERED: AMOCLA875 PO (11:26)
[2024-01-28] MEDS ORDERED: Amiodarone HCl200 MG PO ×2 (11:26)
[2024-01-28] MEDS ORDERED: POTA10T PO (11:27)
[2024-01-28] MEDS ORDERED: PROBIOTIC1 EA13 PO (11:28)
[2024-01-28] MEDS ORDERED: BUME1 PO (11:28)
[2024-01-28] MEDS ORDERED: BENZ100A PO (11:29)
--- NOTE | 2024-01-28 12:24 | NUR ---
DISCHARGE: IV'S DC'D WNL. PT GIVEN INSTRUCTIONS REGARDING MEDICATION CHANGES AND FOLLOW UP APPOINTMENTS. PT HAS BEEN PROVIDED PHONE NUMBERS TO CALL IF SHE HAS ANY FURTHER QUESTIONS OR CONCERNS. ESCORTED OUT VIA WHEELCHAIR. DENIES FURTHER QUESTIONS OR CONCERNS AT THIS TIME.
[2024-01-29] MEDS ORDERED: Bumetanide 1 MG Tab PO SCH (09:00)
== END 2024-01-28 12:04 | disposition home or self-care (01) | DRG 871 ==
LOC: ER 11:00 → PCU 16:03
PROVIDERS: Internal Medicine; Physician Assistant; Student in an Organized Health Care Education/Training Program; ADMIT Internal Medicine
DX: A41.9 Sepsis, unspecified organism (principal); J18.9 Pneumonia, unspecified organism; I31.39 Other pericardial effusion (noninflammatory); M48.54XA Collapsed vertebra, not elsewhere classified, thoracic region, initial encounter for fracture; I48.91 Unspecified atrial fibrillation; I10 Essential (primary) hypertension; I34.0 Nonrheumatic mitral (valve) insufficiency; I34.1 Nonrheumatic mitral (valve) prolapse; R60.0 Localized edema; R74.01 Elevation of levels of liver transaminase levels; I27.20 Pulmonary hypertension, unspecified; Z79.01 Long term (current) use of anticoagulants; Z86.718 Personal history of other venous thrombosis and embolism; Z88.8 Allergy status to other drugs, medicaments and biological substances; Z88.2 Allergy status to sulfonamides; Z87.891 Personal history of nicotine dependence
CPT/HCPCS: 36415; 71046; 71260; 80048; 80053; 83605; 83735; 83880; 84484; 85025; 87040; 93005; 93010; 93306; 94760; 94762; 96365; 96367; 96368; 97110; 97116; 97162; 97165; 97530; 97535; 99285-25; A9270; J0456; J0696; J2543; J3475; J7030; J7050; Q9967

== ENCOUNTER → 2024-03-09 | Outpatient (CLI) | payer MEDICARE, BC ==
[~2024-03-09] MED LIST changes: +AMIODARONE HCL400 M2 PO; +AMOCLA875 PO; +Acetaminophen650 M1 PO; +Amiodarone HCl200 MG PO; +BENZ100A PO; +BUME1 PO; +FURO20 PO; +LEVFLO500 PO; +POTA10T PO; +PROBIOTIC1 EA13 PO; +VISBIOME 112.51 EACH PO
[2024-03-10 15:16] LABS: Adenovirus F 40/41 Not Detected (NOT DETECT); Astrovirus Not Detected (NOT DETECT); Campylobacter Sp Not Detected (NOT DETECT); Cryptosporidium Not Detected (NOT DETECT); Cyclospora Cayetanensis Not Detected (NOT DETECT); E. Coli O157 Not Detected (NOT DETECT); Entamoeba Histolytica Not Detected (NOT DETECT); Enteroaggregative E. coli-EAEC Not Detected (NOT DETECT); Enteropathogenic E. coli-EPEC Not Detected (NOT DETECT); Enterotoxigenic E. coli-ETEC Not Detected (NOT DETECT); Giardia Lamblia Not Detected (NOT DETECT); Norovirus GI/GII Not Detected (NOT DETECT); Plesiomonas Shigelloides Not Detected (NOT DETECT); Rotavirus A Not Detected (NOT DETECT); Salmonella Sp Not Detected (NOT DETECT); Sapovirus Not Detected (NOT DETECT); Shiga Toxin-prod E. coli-STEC Not Detected (NOT DETECT); Shigella/Enteroin E. coli-EIEC Not Detected (NOT DETECT); Vibrio Cholerae Not Detected (NOT DETECT); Vibrio Sp Not Detected (NOT DETECT); Yersinia Enterocolitica Not Detected (NOT DETECT)
== END ==
LOC: LAB 08:00 → LAB SHORT 08:00
PROVIDERS: Internal Medicine
DX: R19.7 Diarrhea, unspecified (principal)
CPT/HCPCS: 87507

== ENCOUNTER → 2024-03-12 | Outpatient (CLI) | payer MEDICARE, BC ==
[2024-03-13 01:34] LABS: Protein, Urine Quantitative 8.3 mg/dL (0.0-11.9)
== END ==
LOC: LAB SHORT 10:13
PROVIDERS: Internal Medicine
DX: R80.9 Proteinuria, unspecified (principal)
CPT/HCPCS: 84156